=== PATIENT | female | born 1965 | race Caucasian/White ===

== ENCOUNTER 2018-10-16 06:45 | Day surgery (SDC) | payer OTHER ==
[~2018-10-16 06:45] MED LIST: CYMBALTA60 MG PO; METOPROLOL SUCC25 MG PO; PROSOM; PROTONIX20 MG PO; SYNTHROID75 MCG PO; XANAX XR0.5 MG PO
[2018-10-16] MEDS ORDERED: PERCOCET 5-3251 EACH PO (09:04)
== END 2018-10-16 13:30 | disposition home or self-care (01) ==
LOC: CIR.AMB 06:45
DX: D35.1 Benign neoplasm of parathyroid gland (principal)